=== PATIENT | female | born 2005 | race Caucasian/White ===

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

== ENCOUNTER 2023-01-13 21:29 | Outpatient (CLI) | payer BC, MEDICAID, SELFPAY ==
[2023-01-13 21:28] VITALS: BMI 19.3
[2023-01-13 21:52] VITALS: BP 107/66; PULSE 109
[2023-01-13 22:13] VITALS: RESP 17
[2023-01-13 22:22] LABS: Nitrazine Paper, PH Inconclusive
[2023-01-13 22:28] LABS: Actim Prom Negative
[2023-01-13 22:56] VITALS: BP 110/66; PULSE 93
== END 2023-01-13 22:59 | disposition home or self-care (01) ==
LOC: OPOB 21:30 → OBGYN 21:31
PROVIDERS: PCP Family Medicine; Visit Provider Family Medicine
DX: O26.899 Other specified pregnancy related conditions, unspecified trimester (principal); N89.8 Other specified noninflammatory disorders of vagina; Z3A.00 Weeks of gestation of pregnancy not specified
CPT/HCPCS: 59025; 83986; 84112; 99211

== ENCOUNTER 2023-01-16 20:39 | Outpatient (CLI) | payer BC, MEDICAID, SELFPAY ==
[2023-01-16] VITALS (12 sets, daily range): BP systolic 121–132; BP diastolic 58–64; PULSE 82–115; RESP 15; TEMP 35.8; O2SAT 98; BMI 19.2
== END 2023-01-16 21:28 | disposition home or self-care (01) ==
LOC: OPOB 20:39 → OBGYN 20:40
PROVIDERS: PCP Family Medicine; Visit Provider Family Medicine
DX: O47.9 False labor, unspecified (principal); Z3A.00 Weeks of gestation of pregnancy not specified
CPT/HCPCS: 59025; 99211

== ENCOUNTER 2023-01-17 06:15 | Outpatient (CLI) | payer BC, MEDICAID, SELFPAY ==
[2023-01-17] VITALS (9 sets, daily range): BP systolic 106–121; BP diastolic 55–64; PULSE 74–91; RESP 16–17; TEMP 36.6; BMI 19.2
== END 2023-01-17 10:07 | disposition home or self-care (01) ==
LOC: OPOB 06:15 → OBGYN 06:16
PROVIDERS: PCP Family Medicine; Visit Provider Family Medicine
DX: O47.9 False labor, unspecified (principal); Z3A.00 Weeks of gestation of pregnancy not specified
CPT/HCPCS: 59025; 99211

== ENCOUNTER 2023-01-17 15:34 | Outpatient (CLI) | payer BC, MEDICAID, SELFPAY ==
[2023-01-17] VITALS (7 sets, daily range): BP systolic 108–126; BP diastolic 59–66; PULSE 79–122; RESP 16; TEMP 36; BMI 19.2
[2023-01-17 16:18] LABS: Actim Prom Negative
[2023-01-17] MEDS: hyDROXYzine 25 mg Capsule 50 MG PO (16:40)
[2023-01-17] MEDS: acetaminophen 500 mg Tablet 1000 MG PO (16:41)
== END 2023-01-17 17:47 | disposition home or self-care (01) ==
LOC: OPOB 15:44 → OBGYN 17:34
PROVIDERS: PCP Family Medicine; Visit Provider Family Medicine
DX: O26.899 Other specified pregnancy related conditions, unspecified trimester (principal); N89.8 Other specified noninflammatory disorders of vagina; Z3A.00 Weeks of gestation of pregnancy not specified
CPT/HCPCS: 59025; 84112; 99211

== ENCOUNTER 2023-01-18 12:40 | Outpatient (CLI) | payer BC, MEDICAID, SELFPAY ==
[2023-01-18 12:40] VITALS: BMI 19.0
[2023-01-18 13:03] VITALS: BP 114/61; PULSE 114; RESP 16
[2023-01-18 13:20] VITALS: BP 114/60; PULSE 88
== END 2023-01-18 13:30 | disposition home or self-care (01) ==
LOC: OPOB 12:51 → OBGYN 12:53
PROVIDERS: PCP Family Medicine; Visit Provider Family Medicine
DX: O47.9 False labor, unspecified (principal); O46.90 Antepartum hemorrhage, unspecified, unspecified trimester; Z3A.00 Weeks of gestation of pregnancy not specified
CPT/HCPCS: 59025; 99211

== ENCOUNTER 2023-01-19 16:45 | Inpatient (IN) | payer BC, MEDICAID, SELFPAY ==
[2023-01-19] VITALS (46 sets, daily range): BP systolic 100–136; BP diastolic 52–71; PULSE 60–107; RESP 16; TEMP 36.3; O2SAT 93–100; BMI 19.2
[2023-01-19 17:20] LABS: Basophils % 0.2 %; Eosinophils # 0.1 10^3/uL (0.0-0.8); Eosinophils % 0.4 %; Hematocrit 34.1 % (37.0-47.0); Hemoglobin 10.5 g/dL (11.5-15.3); Lymphocytes # 1.9 10^3/uL (1.5-6.5); Lymphocytes % 13.7 %; Mean Corpuscular HGB Conc 30.8 g/dL (30.0-36.0); Mean Corpuscular Volume 81.2 fl (81-99); Mean Platelet Volume 9.5 fL (7.4-10.4); Monocytes # 0.7 10^3/uL (0.2-0.9); Monocytes % 5.3 %; Neutrophils # 10.81 10^3/uL (1.8-8.0); Neutrophils % 79.9 %; Nucleated Red Blood Cells % 0 %; Platelet Count 280 10^3/cmm (130-400); White Blood Count 13.5 10^3/uL (4.5-13.0)
[2023-01-19] MEDS: lactated ringers 1,000 ML 999 ML IV ×2 (18:22→20:18)
[2023-01-19] MEDS: ROPivacaine syringe 100 MG/50 ML SYRINGE 10 MG EPIDURAL (19:57)
--- NOTE | 2023-01-19 20:22 | ANES.PREANE2 ---
Pre-Anesthetic Assessment Height/Weight: Height 1.63 m Weight 50.802 kg Pulse Resp BP Pulse Ox O2 Del Method 69 16 128/62 97 Room Air 01/19/23 20:11 01/19/23 16:33 01/19/23 19:38 01/19/23 20:11 01/19/23 16:34 Preop Diagnosis: IUP Labor Epidural Familial anesthetic complications: None Last intake: 2100 01/18/23 meal current clears. Social No alcohol and No tobacco Exam alert, oriented x 3 and clear to auscultation bilaterally Airway Submandibular: within normal limits Cervical ROM: within normal limits Mallampati: Class II Dentition: full History/ROS No significant history except as noted Pulmonary None reported CV/HEM None reported None reported Hepatic None reported GI None reported Metabolic None reported Musc/skel None reported Neuropsych None reported Anesthetic Plan ASA status: 2 Anesthesia: Regional (specify below) Other: Labor Epidural Medications/Allergies Home Medications Medication Instructions Recorded Confirmed Last Taken Type PNV 153-FA 400 mcg-om3 35 mg-dha 1 tab PO BID 08/23/20 01/17/23 01/16/23 History 25 mg-epa 5 mg-fish oil chew tablet ( Gummies) Allergies Allergy/AdvReac Type Severity Reaction Status Date / Time shellfish derived Allergy ALGY-Anaphy Verified 01/17/23 06:30 laxis Current Medications Generic Name Dose Route Start Last Admin Trade Name Freq PRN Reason Stop Dose Admin Lactated Ringer's 1,000 mls @ 999 mls/hr 01/19/23 18:36 01/19/23 20:18 Lactated Ringers IV 999 mls/hr .Q1H1M PRN Administration See label comments Ropivacaine 100 mg in 50 mls @ 10 mls/hr 01/19/23 18:45 01/19/23 19:57 Naropin Syringe EPIDURAL 10 mls/hr .Q5H KAIDEN Administration PFSH Anesthesia Medical History Psychiatric care Surgical History No pertinent past surgical history Female Reproductive History : 2 Data Anesthesia 01/19/23 17:00 Short CBC 01/19/23 Range/Units 17:00 WBC 13.5 H (4.5-13.0) 10^3/uL Hgb 10.5 L (11.5-15.3) g/dL Hct 34.1 L (37.0-47.0) % MCV 81.2 (81-99) fl Plt Count 280 (130-400) 10^3/cmm Neut % (Auto) 79.9 % Neut # (Auto) 10.81 H (1.8-8.0) 10^3/uL Cardiac Studies: No Data to Display Anesthesia Procedures Epidural Time Out Performed: Yes Consent: from patient, risks and benefits reviewed and patient agrees to proceed Lumbar Level: L3-L4 Epidural position: sitting Epidural procedure: sterile prep of area, 1% lidocaine to numb the area, negative for paresthesia passed, test dose given, 1.5% xylocaine 1:200k epi, placed PCEA, no systemic response, sterile dressing applied, L.U.D. no apparent complications and 0.2% Ropiavacaine @ mls/hr (10) Additional Comments: Successful on first attempt. OMID at 4.5cm catheter threaded to 12cm remaining saline and lidocaine given.
--- NOTE | 2023-01-19 22:07 | PM.OPHPUD ---
Labor & Delivery H&P Update Date of Procedure: January 19, 2023 Date H&P Performed: 01/15/23 Changes to previous documentation: The patient was 4 cm dilated with a bulging bag of water and nicole every 5 minutes Admission Diagnosis: 17-year-old 3 para 1-0-1-1 at 38 weeks and 6 days presenting in active labor Preop diagnosis: IUP Planned procedure: Spontaneous vaginal delivery Other information: The patient has had an unremarkable . She has consistent care. Her blood type is O+. Her antibody screen was negative. Hepatitis B and hepatitis C were negative. GBS negative. Rubella immune. Her drug screen was negative. Her RPR was negative. Her chlamydia gonorrhea and HIV were also negative. She arrived to the hospital after having had some contractions. She had been nicole for much of the weekend. Membranes were intact. There were no other concerns.
--- NOTE | 2023-01-19 22:30 | P.PCNOB_ITS ---
Delivery Note: Date of delivery: January 19, 2023 Pre-delivery diagnoses: 17-year-old 3 para 1-0-1-1 at 38 weeks and 6 days presenting in active labor Post-delivery diagnoses: Status post spontaneous vaginal delivery Procedure: Spontaneous vaginal delivery Delivering Physician: Elias Tracy Estimated blood loss (mL): 50 Pre-Delivery Course: The patient presented to the hospital in active labor. An amniotomy was pe rformed. An epidural was placed. She progressed to complete without difficulty. Delivery: DELIVERY: The patient progressed to complete without difficulty. She delivered a male with a weight of 6 pounds 0 ounces with Apgars of 9, 9. The baby was delivered from the MERRY position and placed on the mother's abdomen. The cord was then clamped and cut. There was no nuchal cord. There was no meconium. The placenta and 3 vessel cord were delivered intact shortly thereafter. The perineum and vaginal vault were carefully examined. No lacerations were noted. Both the mother and the baby were in stable condition. Post-Delivery Status: Good A&P Assessment and plan (1) Spontaneous vaginal delivery: I anticipate routine care. (2) 38 weeks gestation of : Coding Level of Care Code Acute Code for Chg Fwd Diagnoses Spontaneous vaginal delivery O80 38 weeks gestation of Z3A.38
[2023-01-20] VITALS (11 sets, daily range): BP systolic 103–130; BP diastolic 52–72; PULSE 68–125; RESP 13–17; TEMP 36.6–37.3; O2SAT 96–98
[2023-01-20] MEDS: lanolin oint 7 gm 1 APPLIC TOPICAL (00:49)
[2023-01-20] MEDS: benzocaine-menthol 78 gm Canister 1 SPRAY TOPICAL (00:50)
[2023-01-20] MEDS: ibuprofen 800 mg tablet PO ×2 (08:23→21:30)
[2023-01-20] MEDS: docusate sodium 100 mg Capsule PO ×2 (08:23→21:30)
[2023-01-20] MEDS: prenatal vitamin Capsule 1 CAP PO (08:24)
[2023-01-20 14:29] LABS: Hematocrit 29.9 % (37.0-47.0); Hemoglobin 9.3 g/dL (11.5-15.3); Mean Corpuscular HGB Conc 31.1 g/dL (30.0-36.0); Mean Corpuscular Hemoglobin 25.3 pg (28.0-34.0); Mean Corpuscular Volume 81.3 fl (81-99); Platelet Count 259 10^3/cmm (130-400); Red Blood Count 3.68 10^6/uL (4.1-5.3); Red Cell Distribution Width 14.8 % (12.1-15.1); White Blood Count 15.6 10^3/uL (4.5-13.0)
[2023-01-21 05:36] VITALS: BP 94/55; PULSE 53; RESP 16; TEMP 36.6; O2SAT 97
--- NOTE | 2023-01-21 07:55 | PM.OBGYPN ---
ANIMAL ANATOMIST Subjective Subjective: Interval history: This note pertains to January 20. The patient is doing well. She has some concerns about breast-feeding. Her bleeding has been minimal. Her pain has been well controlled. Labor: Station: +1 Amniotic Membrane Status: Ruptured Monitor Mode: External Contraction Pattern: Regular Vitals/I&O/Wt Last Vital Signs Temp 97.9 F 01/21/23 05:36 Pulse 53 L 01/21/23 05:36 Resp 16 01/21/23 05:36 BP 94/55 01/21/23 05:36 Pulse Ox 97 01/21/23 05:36 O2 Del Method Room Air 01/21/23 05:36 01/20/23 01/21/23 01/21/23 22:59 06:59 14:59 Intake Total 1000 / 1000 Balance 1000 / 1000 Weight last 48 hrs Weight 112 lb Physical Exam Narrative: The patient is alert. She appears comfortable. Her heart has a regular rate and rhythm with no murmurs appreciated. Lungs are clear to auscultation bilaterally. Her fundus is firm and below the umbilicus. Urinary Catheter Management: Ryan Latex: Cath Placed During This Visit: yes Urinary Catheter Date of Insertion: 01/19/23 Urinary Catheter Time of Insertion: 09:25 Data 01/20/23 14:15 A&P Assessment and plan (1) 38 weeks gestation of : (2) Spontaneous vaginal delivery: Anticipate routine care. The data processing specialist will work with her for her concerns regarding breast-feeding Attestations Medical Necessity Statement*: Routine care. Coding Level of Care Code Acute Code for Chg Fwd Diagnoses 38 weeks gestation of Z3A.38 Spontaneous vaginal delivery O80
--- NOTE | 2023-01-21 07:56 | PM.OBGYDC ---
Discharge Providers [employer]OP[employer] ANALYST Date of Admission: 01/19/23 16:45 Date of Discharge: 01/21/23 Attending Provider at Admission: Elias Tracy MD Attending Provider at Discharge: Elias Tracy MD Primary Care Provider: Darius Garzon MD Diagnoses at Discharge Discharge Diagnosis (1) Spontaneous vaginal delivery: Status: Resolved (2) 38 weeks gestation of : Status: Resolved Reason for Visit Reason for Visit: Contractions Hospital Course Hospital Course The patient presented to the hospital in active labor. An amniotomy was performed. An epidural was placed. The patient progressed to complete and had an unremarkable delivery of a healthy appearing 38-week male infant. Her course was also unremarkable. Her bleeding was within normal limits. Her pain was well-controlled. There were some concerns regarding her care of the infant, and the nurses carefully assessed the patient throughout her hospital stay. Otherwise there were no concerns. Information Peripartum Data: Delivery Method: Vaginal Physical Exam Narrative: The patient is alert. She appears comfortable. Her heart has a regular rate and rhythm with no murmurs appreciated. Lungs are clear to auscultation bilaterally. Her fundus is firm and below the umbilicus. Urinary Catheter Management: Ryan Latex: Cath Placed During This Visit: yes Urinary Catheter Date of Insertion: 01/19/23 Urinary Catheter Time of Insertion: 09:25 Discharge Data Studies Completed and Pending Laboratory Results WBC 15.6 10^3/uL (4.5-13.0) H 01/20/23 14:15 RBC 3.68 10^6/uL (4.1-5.3) L 01/20/23 14:15 Hgb 9.3 g/dL (11.5-15.3) L 01/20/23 14:15 Hct 29.9 % (37.0-47.0) L 01/20/23 14:15 MCV 81.3 fl (81-99) 01/20/23 14:15 MCH 25.3 pg (28.0-34.0) L 01/20/23 14:15 MCHC 31.1 g/dL (30.0-36.0) 01/20/23 14:15 RDW 14.8 % (12.1-15.1) 01/20/23 14:15 Plt Count 259 10^3/cmm (130-400) 01/20/23 14:15 MPV 10.0 fL (7.4-10.4) 01/20/23 14:15 Neut % (Auto) 79.9 % 01/19/23 17:00 Lymph % (Auto) 13.7 % 01/19/23 17:00 [place] % (Auto) 5.3 % 01/19/23 17:00 Eos % (Auto) 0.4 % 01/19/23 17:00 Baso % (Auto) 0.2 % 01/19/23 17:00 Neut # (Auto) 10.81 10^3/uL (1.8-8.0) H 01/19/23 17:00 Lymph # (Auto) 1.9 10^3/uL (1.5-6.5) 01/19/23 17:00 [place] # (Auto) 0.7 10^3/uL (0.2-0.9) 01/19/23 17:00 Eos # (Auto) 0.1 10^3/uL (0.0-0.8) 01/19/23 17:00 Baso # (Auto) 0.0 10^3/uL (0.0-0.1) 01/19/23 17:00 Nucleated RBC % (auto) 0 % 01/19/23 17:00 Nucleated RBCs # 0.0 /100WBC 01/19/23 17:00 Vitals Last Vital Signs Temp 97.9 F 01/21/23 05:36 Pulse 53 L 01/21/23 05:36 Resp 16 01/21/23 05:36 BP 94/55 01/21/23 05:36 Pulse Ox 97 01/21/23 05:36 O2 Del Method Room Air 01/21/23 05:36 Discharge Plan Discharge Patient Disposition: Home Condition: Stable Prescriptions: New ibuprofen 800 mg Tablet 800 mg PO TID Qty: 45 0RF Continued Gummies 400 mcg-35 mg- 25 mg-5 mg Tablet,Chewable 1 tab PO BID Discharge Orders: Discharge Order (Routine); Ordered 01/21/23 Ordered By: Elias Tracy Referrals: Elias Tracy MD [Physician] - 6 Weeks Discharge Diet: Usual diet Discharge Activity: Limit activity as instructed Patient Instructions: Opioid Safety Discharge Attestations [employer] ANALYST Time Spent in Discharge Care*: less than 30 min Coding Level of Care Code Acute Code for Chg Fwd Diagnoses Spontaneous vaginal delivery O80 38 weeks gestation of Z3A.38
--- NOTE | 2023-01-21 08:00 | ANE.PACU2 ---
Inpatient post-anesthesia follow up: Airway intact: Yes Vital signs: Temperature 98.4 F Pulse Rate 83 Respiratory Rate 16 Blood Pressure 106/56 Pulse Oximetry 99 Oxygen Delivery Me thod Room Air Oxygen Flow Rate Fraction of Inspir ed Oxygen Hydration adequate: Yes Nausea and vomiting: No Pain level: 1 Mental status: Baseline
[2023-01-21 09:28] VITALS: BP 105/62; PULSE 72; TEMP 36.6; O2SAT 97
[2023-01-21] MEDS: ibuprofen 800 mg tablet PO (09:29)
[2023-01-21] MEDS: prenatal vitamin Capsule 1 CAP PO (09:29)
[2023-01-21] MEDS: docusate sodium 100 mg Capsule PO (09:29)
[2023-01-21 16:40] VITALS: BP 106/56; PULSE 83; TEMP 36.9; O2SAT 99
[2023-01-21 17:45] VITALS: BP 106/56; PULSE 83; TEMP 36.9; O2SAT 99
== END 2023-01-21 17:45 | disposition home or self-care (01) | DRG 807 ==
LOC: OPOB 01-20 07:02 → OBGYN 01-20 07:02
PROVIDERS: Admitting Provider Family Medicine; PCP Family Medicine; Visit Provider Family Medicine
DX: O80 Encounter for full-term uncomplicated delivery (principal); Z37.0 Single live birth; Z3A.38 38 weeks gestation of pregnancy
CPT/HCPCS: 36415; 51702; 59025; 59409; 83986; 85025; 85027; 99211; J2795; J7040; J7120